=== PATIENT | female | born 1975 | race Caucasian/White ===

== ENCOUNTER → 2019-03-11 07:56 | Outpatient (CLI) | payer BC, SELFPAY ==
--- NOTE | ~2019-03-11 | MM_ITS ---
EXAMINATION: MM screening [facility] BI w jimmy HISTORY: Screening mammogram TECHNIQUE: Craniocaudal and mediolateral oblique 3-D tomosynthesis images were obtained and synthetic 2-D images were generated. CAD analysis was submitted and interpreted. COMPARISON: 12/14/2017, 12/02/2016, 11/25/2016 BREAST PARENCHYMAL COMPOSITION: There are scattered areas of fibroglandular density. FINDINGS: There is no evidence of suspicious mass, calcification, or architectural distortion to sugg est malignancy in either breast. There has been no suspicious interval change. IMPRESSION: 1. No mammographic evidence of malignancy. 2. Recommend routine screening mammography in one year. BI-RADS Category 1: Negative Reviewed, dictated and finalized at location A. NG TECHNICIAN
== END ==
PROVIDERS: PCP Family Medicine; Visit Provider Student in an Organized Health Care Education/Training Program
DX: Z12.31 Encounter for screening mammogram for malignant neoplasm of breast (principal)
CPT/HCPCS: 77063; 77067

== ENCOUNTER 2019-07-26 00:14 | Outpatient (CLI) | payer BC, SELFPAY ==
[2019-07-26 18:10] LABS: SARS-CoV-2 RNA PCR Negative
== END 2019-07-26 00:15 | disposition home or self-care (01) ==
LOC: ANHCOVIDDT 00:14
PROVIDERS: Anesthesiology; PCP Family Medicine; Visit Provider Student in an Organized Health Care Education/Training Program
DX: Z20.828 Contact with and (suspected) exposure to other viral communicable diseases (principal); Z01.812 Encounter for preprocedural laboratory examination
CPT/HCPCS: 87635; C9803; U0003

== ENCOUNTER 2019-07-28 00:25 | Day surgery (SDC) | payer BC, SELFPAY ==
[2019-04-25 10:57] VITALS: BMI 34.9
[2019-07-18 14:59] VITALS: BMI 35.7
--- NOTE | 2019-07-18 15:00 | PC.NURSE ---
HX VERIFIED WITH PT; PT STATES NO CHANGE IN HEALTH SINCE INTERVIEW ON 04/25/19. INSTRUCTIONS GIVEN FOR 07/28/19 SURGERY
--- NOTE | 2019-07-28 03:50 | PM.IMHP ---
H&P: HPI History of Present Illness Chief complaint: abn uterine bleeding Narrative: Savanah Vasquez is a 44 year old female who presented to the [facility] for evaluation of abnormal uterine bleeding. At time of presentation, patient stated that her last normal menstrual period was in November of 2018. She skipped cycle in December and January of 2019 and reported onset of spotting in mid February 2019 followed by significantly heavy flow that has been mostly persistent since then. Reported passage of several large blood clots during this time as well. Patient has a history of endometrial polyps in the past and is concerned about recurrence of polyps. She had an unremarkable pelvic US done in 08/2018. She has undergone a hysteroscopy, D&C, and polypectomy in the past in 2007. She is uncertain, but may have had similar procedure performed a 2nd time in 2011 or 2012. She believes an endometrial ablation was also performed during second procedure. Records unavailable. Patient is not currently on hormonal regulation. During evaluation, an EMB was attempted in office x 2, however, unsuccessful due to cervical stenosis. Decision made to proceed with a hysteroscopy/D&C in the OR. Patient reports feeling well today without complaints. Review of Systems Review of Systems: All systems reviewed & are unremarkable except as noted in HPI and below Constitutional: Constitutional: Reports as per HPI, Reports no additional constitutional complaints, Denies chills, Denies fever(s), Denies headache(s) and Denies night sweats Eyes: Eyes: Reports as per HPI and Reports no additional eye complaints ENT: Reports system reviewed and no additional complaints, except as documented, Reports as per HPI, Reports Normal hearing present and Denies headache(s) Cardiovascular: Cardiovascular: Reports as per HPI, Reports no additional cardiovascular complaints, Denies chest pain and Denies dyspnea Respiratory: Respiratory: Reports as per HPI, Reports no additional respiratory complaints, Denies cough and Denies dyspnea Gastrointestinal: Gastrointestinal: Reports as per HPI, Reports no additional gastrointestinal complaints, Denies abdominal pain, Denies change in bowel habits, Denies change in stool character, Denies nausea and Denies vomiting Genitourinary: Genitourinary: Reports no additional female genitourinary complaints, Reports as per HPI, Reports abnormal vaginal bleeding, Denies genital lesions, Denies hot flashes, Denies dyspareunia, Denies pelvic pain, Denies sexual dysfunction, Denies urinary incontinence, Denies vaginal discharge, Denies vaginal dryness and Denies vaginal odor Musculoskeletal: Musculoskeletal: Reports no additional musculoskeletal complaints and Reports as per HPI Integumentary/Breasts: Skin/Breast: Reports system reviewed and no additional complaints, except as docu, Reports as per HPI, Denies breast pain and Denies nipple discharge Neurologic: Reports system reviewed and no additional complaints, except as documented, Reports as per HPI, Reports Normal hearing present and Denies headache(s) Psychiatric: Psychiatric: Reports no additional psychiatric complaints, Reports as per HPI, Denies anxiety and Denies depression Endocrine: Endocrine: Reports no additional endocrine complaints and Reports as per HPI Hematologic/Lymphatic: Hematologic/Lymphatic: Reports no additional hematologic/lymphatic complaints and Reports as per HPI Allergic/Immunologic: Allergic/Immunologic: Reports no additional allergic/immunologic complaints and Reports as per HPI PMFSH Past Medical History Medical History Endometrial polyp Migraines Surgical History Surgical History History of dilation and curettage Previous section x 3 [place] teeth removed Family History Family History Grandparent Diabetes mellitus
[2019-07-28] MEDS: LACTATED RINGERS 1,000 ML 30 ML IV CONT (06:30)
[2019-07-28 06:50] VITALS: BP 88/63; PULSE 80; RESP 16; TEMP 36.4; O2SAT 100; BMI 34.7
--- NOTE | 2019-07-28 06:52 | WPDANESEPPF ---
Anes - Initial Pre Proc Eval Procedure: Operation Date: 07/28/19 07:30 Proposed Procedures p Hysteroscopy, Dilation and Curettage, Possible Myosure - Margaret Pink MD Date/Time: 07/28/19 06:52 Surgeon: Margaret Pink MD Pre Op Diagnosis: abn uterine bleeding Patient Data Age: 44 Gender: F Height: 5 ft 5 in Weight: 94.8 kg Last Vital Signs Temp 36.4 C L 07/28/19 06:50 Pulse 80 07/28/19 06:50 Resp 16 07/28/19 06:50 BP 88/63 L 07/28/19 06:50 Pulse Ox 100 07/28/19 06:50 Allergies Allergy/AdvReac Type Severity Reaction Status Date / Time No Known Allergies Allergy Unknown Verified 07/28/19 06:48 Home Medications Medication Instructions Recorded Confirmed Type cholecalciferol (vitamin D3) 1,250 1,250 mcg PO WEEKLY 04/06/19 07/18/19 History mcg (50,000 unit) capsule misoprostol 200 mcg PO 07/28/19 History Patient hx anesthesia problems: none Family hx anesthesia problems: none PMFSH Past Medical History Medical History Endometrial polyp Migraines Surgical History Surgical History History of dilation and curettage Previous section x 3 [place] teeth removed Family History Family History Grandparent Diabetes mellitus Hypertension Father Family history of congenital heart disease Mother Family history of lymphoma Social History Social History Smoking status: Never smoker Second hand tobacco smoke exposure: No Alcohol intake: never Anes - Eval Final PreProcedure Day of Procedure 07/28/19 06:52 Patient weight: obese Heart: regular rate and rhythm Lungs: clear to auscultation Airway: Mallampati scale class II Neurological: alert and oriented Last oral intake: >/= 8 hours ASA classification: II Emergent: no Anesthetic plan: proceed Anesthesia type and monitoring: general GIVS and standard monitoring Informed Consent: The patient's anesthetic plan and its attendant risks and benefits were discussed with the patient/family/POA. Questions were solicited and answers provided to the satisfaction of the patient/family/POA.
--- NOTE | 2019-07-28 06:54 | SUR.PREOP ---
DR CHONG NOTIFIED OF BP 88/63.
--- NOTE | 2019-07-28 07:24 | WPDHPUPDATE1 ---
History and Physical Update Update Date/Time: 07/28/19 07:24 History and Physical has been reviewed, including an updated exam of the patient. There are NO changes in the patient's condition. Risks, benefits, and alternatives have been discussed and questions answered. Patient agrees to proceed with procedure.
[2019-07-28] MEDS: KETOROLAC 30 MG/ML VIAL (*BKC) IV PUSH (07:30)
--- NOTE | 2019-07-28 07:56 | SUR.OPER ---
Ebl=10ml
--- NOTE | 2019-07-28 08:03 | PM.PROC ---
Procedure Note - Detailed Date of procedure: 07/28/19 Pre-op diagnosis: abn uterine bleeding Post-op diagnosis: same Procedure performed: Hysteroscopy, dilation and curettage Description of procedure: The patient was taken to the operating room where she self transferred to the operating room table. She was placed in the dorsal supine position. Anesthesia was administered and found to be adequate. The patient was repositioned in dorsal lithotomy position with the use of Deandre stirrups. She was prepped and draped in the usual sterile fashion. An examination under anesthesia was performed and revealed the uterus to be approximately 8 week size and anteverted. A red rubber catheter was used to drain the bladder of 75 cc of light yellow urine. A bivalve speculum was inserted into the vagina. The anterior lip the cervix was grasped with a single-tooth tenaculum. A paracervical block was performed with 1% Lidocaine. 5 cc of Lidocaine was administered on either side. The cervix was serially dilated to accommodate a hysteroscope. The hysteroscope was introduced into the endometrial cavity. A moderate amount of fluffy polypoid tissue was noted along with what appeared to be significant scar tissue and adhesions likely from prior procedure. Tubal ostia were not visualized. A few photographs were taken and the hysteroscope was removed. A medium sized rigid curette was used to perform a curettage of the endometrial cavity. All quadrants of the endometrium were explored. A small amount of tissue was obtained and prepared to be sent to pathology for analysis. A 2nd pass with the hysteroscope was then made and showed cavity with similar appearance to initial view. Hysteroscope was removed. The tenaculum was removed. No bleeding was noted from the tenaculum puncture sites. The vagina was cleansed and dried. The remainder of the patient was also cleansed and dried and the patient was taken out the dorsal lithotomy position. She was awakened from anesthesia without difficulty and transported to the recovery room in stable condition. All instrument counts were correct at the end of the procedure. The patient tolerated the procedure well. Anesthesia: MAC Surgeon: Margaret Pink MD Estimated blood loss (mL): 10 IV fluids (mL): 600 Urine output (mL): 75 Drains: No Packing: No Pathology: yes (endometrial curettings) Complications: No immediate complications Condition: stable Disposition: PACU Findings: Hysteroscopic fluids: 2000cc in/1900cc out Intraoperative findings: moderate amount of fluffy, polypoid tissue inside of endometrial cavity, significant adhesions and scar tissue, tubal ostia not seen
[2019-07-28 08:04] VITALS: BP 112/59; PULSE 69; RESP 16; O2SAT 96
[2019-07-28 08:30] VITALS: BP 114/63; PULSE 62; RESP 16
[2019-07-28 09:00] VITALS: BP 106/57; PULSE 60; RESP 16
[2019-07-28 09:30] VITALS: BP 113/63; PULSE 59; RESP 16
[2019-07-28 09:50] VITALS: BP 113/63; PULSE 59; RESP 16
== END 2019-07-28 10:00 | disposition home or self-care (01) ==
PROVIDERS: PCP Family Medicine; Visit Provider Student in an Organized Health Care Education/Training Program
PROC: 0U5B8ZZ Destruction of Endometrium, Via Natural or Artificial Opening Endoscopic (ICD-10-PCS; CPT 58563; principal; 2019-07-28 07:30)
DX: N93.9 Abnormal uterine and vaginal bleeding, unspecified (principal); N84.0 Polyp of corpus uteri; E66.9 Obesity, unspecified; Z68.34 Body mass index [BMI] 34.0-34.9, adult
CPT/HCPCS: 58558; 88305; A9270; J0131; J1885; J2250; J2405; J2704; J3010; J7030; J7120

== ENCOUNTER → 2020-05-14 10:38 | Outpatient (CLI) | payer BC, SELFPAY ==
--- NOTE | ~2020-05-14 | MM_ITS ---
EXAMINATION: MM screening [facility] BI w jimmy HISTORY: Screening mammogram TECHNIQUE: Craniocaudal and mediolateral oblique 3-D tomosynthesis images were obtained and synthetic 2-D images were generated. CAD analysis was submitted and interpreted. COMPARISON: 03/11/2019, 12/14/2017 bilateral digital screening mammogram examinations BREAST PARENCHYMAL COMPOSITION: There are scattered areas of fibroglandular density. FINDINGS: There is no evidence of suspicious mass, calcification, or architectural distortion to sugg est malignancy in either breast. There has been no suspicious interval change. IMPRESSION: 1. No mammographic evidence of malignancy. 2. Recommend routine screening mammography in one year. BI-RADS Category 1: Negative Reviewed, dictated and finalized at location A.
== END ==
PROVIDERS: Visit Provider Student in an Organized Health Care Education/Training Program
DX: Z12.31 Encounter for screening mammogram for malignant neoplasm of breast (principal)
CPT/HCPCS: 77063; 77067

== ENCOUNTER 2020-05-24 08:27 | Outpatient (CLI) | payer BC, SELFPAY | END 2020-05-24 08:28 | LOC: ANHCOVIDVC 08:27 | DX: Z23 Encounter for immunization (principal) | CPT/HCPCS: 0001A; 91300 ==

== ENCOUNTER 2020-06-14 08:29 | Outpatient (CLI) | payer BC, SELFPAY | END 2020-06-14 08:30 | disposition home or self-care (01) | LOC: ANHCOVIDVC 08:29 | DX: Z23 Encounter for immunization (principal) | CPT/HCPCS: 0002A; 91300 ==

== ENCOUNTER 2021-06-22 11:55 | Emergency (ER) | payer OTHER, SELFPAY ==
[2021-06-22 12:09] VITALS: BP 126/59; PULSE 80; RESP 18; TEMP 36.6; O2SAT 100
--- NOTE | 2021-06-22 12:16 | ED.ANXIETY ---
HPI - Anxiety General Chief Complaint: Anxiety Stated Complaint: anxiety attack Time Seen by Provider: 06/22/21 12:20 Mode of arrival: ambulatory Limitations: no limitations History of Present Illness HPI narrative: 46-year-old female with history of anxiety presents with concern for acute anxiety. Reports she has been taking Prozac for anxiety for about 2 years. Reports it had not been making much of a difference, her doctor recently increased her dose which she felt made her symptoms worse. Reports she decreased her dose yesterday following orders from her doctor. Reports yesterday morning she woke up with acute anxiety that she could not control. Reports symptoms eased throughout the day as she went outside and was active. Reports she woke up this morning with worsening anxiety, reports feeling of her heart beating fast, chest heaviness, feeling of not being able to sit still, being very tearful and scared. She denies any recent life changes. She denies suicidal or homicidal ideations. MD complaint: anxiety Related Data Allergies Allergy/AdvReac Type Severity Reaction Status Date / Time No Known Allergies Allergy Unknown Verified 06/22/21 12:16 Review of Systems Review of Systems: CONSTITUTIONAL: Denies malaise, chills, or fever. CARDIOVASCULAR: Denies chest pain, palpitations, or edema. Reports chest heaviness and intermittent feeling of fast heartbeat RESPIRATORY: Denies cough or dyspnea. GASTROINTESTINAL: Denies abdominal pain, nausea, vomiting, bloody, or mucous stools. Reports diarrhea NEUROLOGIC: Denies numbness, weakness, or headache. PSYCHIATRIC: Reports anxiety All systems reviewed & are unremarkable except as noted in HPI and below PMFSH Past Medical History Medical History (Updated 06/22/21 @ 12:33 by Monisha Stevenson NP) Endometrial polyp Migraines Surgical History Surgical History History of dilation and curettage History of hysteroscopy Previous section x 3 Status post cervical polyp removal [place] teeth removed Family History Family History Grandparent Diabetes mellitus Hypertension Father Family history of congenital heart disease Mother Family history of lymphoma Social History Social History (Updated 04/08/21 @ 09:07 by Lisa Patel) Social History: Smoking status: Never smoker Second hand tobacco smoke exposure: No Alcohol intake: never Substance use: never Substance use type: does not use Gender identity (if verbalized by the patient): Female Sexual Orientation (if Verbalized by the Patient): Straight or Heterosexual Comments At time of signature, agree with nursing past medical, surgical, social and family history. There is no relevant family history pertinent to the presenting complaint Exam Narrative: GENERAL: Well-appearing, well-nourished, and in no acute distress. HEAD: Normocephalic, atraumatic. EYES: PERRLA, sclera clear, and EOMI. ENT: Mucous membranes moist. NECK: Supple. CHEST: No respiratory distress. Clear to auscultation. No bony deformities, no asymmetry. Speaks in full sentences. HEART: Regular rate and rhythm. No murmur heard. Normal peripheral pulses. SKIN: Warm, dry, no visible rash. NEURO: Alert and oriented x3. PSYCH: Tearful, anxious Course Course Emergency Course: Patient reports she has a good support system, her is present and very supportive. Patient is aware of, understands and agrees to treatment plan. Anticipatory guidance given. Patient agrees to follow-up as directed and is aware of reasons to seek care at the emergency department. Portions of this record may have been created with voice recognition software Level of Care: Express Care Visit Vital Signs Vital signs: Vital Signs Temperature 98 F 06/22/21 12:09 Pulse Rate 80 06/22/21 12:09 Respiratory Rate 18 06/22/21 12:
[2021-06-22 12:17] VITALS: BP 126/59; PULSE 80; RESP 18; TEMP 36.6; O2SAT 100
== END 2021-06-22 12:41 | disposition home or self-care (01) ==
PROVIDERS: Emergency Provider Nurse Practitioner; PCP Family Medicine
DX: F41.9 Anxiety disorder, unspecified (principal)
CPT/HCPCS: 99213; G0463

== ENCOUNTER 2021-08-21 07:21 | Outpatient (CLI) | payer OTHER, SELFPAY ==
--- NOTE | ~2021-08-21 | MM_ITS ---
EXAMINATION: MM screening [facility] BI w jimmy HISTORY: Screening mammogram TECHNIQUE: Craniocaudal and mediolateral oblique 3-D tomosynthesis images were obtained and synthetic 2-D images were generated. CAD analysis was submitted and interpreted. COMPARISON: 05/14/2020, 03/11/2019, 12/14/2017 BREAST PARENCHYMAL COMPOSITION: There are scattered areas of fibroglandular density. FINDINGS: There is no suspicious mass, calcification, or architectural distortion to suggest malignan cy in either breast. There has been no suspicious interval change. IMPRESSION: 1. No mammographic evidence of malignancy. 2. Recommend routine screening mammography in one year. BI-RADS Category 1: Negative Reviewed, dictated and finalized at location A.
== END 2021-08-21 07:22 | disposition home or self-care (01) ==
PROVIDERS: PCP Family Medicine; Visit Provider Student in an Organized Health Care Education/Training Program
DX: Z12.31 Encounter for screening mammogram for malignant neoplasm of breast (principal)
CPT/HCPCS: 77063; 77067

== ENCOUNTER 2022-04-27 16:06 | Emergency (ER) | payer SELFPAY ==
[2022-04-27 16:16] VITALS: BP 119/67; PULSE 91; RESP 20; TEMP 37.2; O2SAT 99
[2022-04-27 16:18] VITALS: BP 119/67; PULSE 91; RESP 20; TEMP 37.2; O2SAT 99
--- NOTE | 2022-04-27 16:42 | ED.URI ---
HPI - URI/Sore Throat General Chief Complaint: Upper Respiratory Infection Stated Complaint: Cough,Headache,Body Aches Time Seen by Provider: 04/27/22 16:08 Source: patient Mode of arrival: ambulatory Limitations: no limitations History of Present Illness HPI Narrative: 46-year old female presents to [facility] with complaints of sore throat, cough, headache, left ear pressure for the past 2 days. Patient reports that she had an upset stomach and nausea 3 days prior but that since resolved. Patient reports that her son was recently ill with fever as well. Patient has been taking [id number] Tylenol, ibuprofen, DayQuil, NyQuil and using Vicks vapor rub with minimal relief. Patient denies vomiting, diarrhea, shortness of breath or wheezing. Patient is a nonsmoker. Patient denies recent travel MD elicited complaint: cough, sore throat, rhinorrhea and nasal congestion Onset (ago): day(s) (2) Able to tolerate fluids by mouth: Yes Context: sick contacts Treatments prior to arrival: acetaminophen, ibuprofen and cold medicine Related Data Allergies Allergy/AdvReac Type Severity Reaction Status Date / Time buspirone [From BuSpar] AdvReac Intermediate Anxiety Verified 11/18/21 10:11 lexapro AdvReac Intermediate Anxiety Uncoded 11/18/21 10:11 Review of Systems Constitutional: Constitutional: Reports chills, Reports fatigue, Reports fever(s) and Denies weakness ENT: Denies vertigo, Denies dizziness, Denies epistaxis, Reports nasal congestion and Reports sore throat Respiratory: Respiratory: Reports cough, Denies dyspnea and Denies wheezing Gastrointestinal: Gastrointestinal: Denies diarrhea, Denies nausea and Denies vomiting Integumentary/Breasts: Skin/Breast: Denies rash Neurologic: Denies syncope and Denies headache(s) Endocrine: Endocrine: Denies fatigue Allergic/Immunologic: Allergic/Immunologic: Denies throat swelling, Denies tongue swelling and Denies wheezing PMFSH Past Medical History Medical History (Updated 04/27/22 @ 16:49 by Mari Tobar APRN) Endometrial polyp Migraines Surgical History Surgical History History of dilation and curettage History of hysteroscopy Previous section x 3 Status post cervical polyp removal [place] teeth removed Family History Family History Grandparent Diabetes mellitus Hypertension Father Family history of congenital heart disease Mother Family history of lymphoma Social History Social History Social History: Smoking status: Never smoker Second hand tobacco smoke exposure: No Alcohol intake: never Substance use: never Substance use type: does not use Living arrangements: with family Occupation/Education: unemployed 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 Gender identity (if verbalized by the patient): Female Sexual Orientation (if Verbalized by the Patient): Straight or Heterosexual Comments At time of signature, I agree with nursing past medical, surgical, social and family history. There is no relevant family history pertinent to the presenting complaint. Exam Const: General: healthy appearing and no acute distress Nutritional Appearance: well nourished Orientation/consciousness: patient oriented x3 Limitations: no limitations HENMT: Head: normal to inspection Ears: external ears normal, EAC's normal and TM abnormal wth effusion serous bilateral Mouth: Yes lip normal and Yes moist mucous membranes Throat: posterior oropharynx normal and uvula midline Other: Moderate bilateral nasal congestion noted with scant amount of clear nasal drainage noted Neck: Neck: normal visual inspection Resp: Effort & Inspection: normal respiratory effort and not labored Auscultation: clear to auscultation bilaterally, no crackles, no
== END 2022-04-27 17:06 | disposition home or self-care (01) ==
PROVIDERS: Emergency Provider Nurse Practitioner Family; PCP Family Medicine
DX: U07.1 COVID-19 (principal)
CPT/HCPCS: 87081; 87426; 87804; 87880; 99213; C9803; G0463

== ENCOUNTER 2022-05-04 17:40 | Observation (INO) | payer SELFPAY ==
--- NOTE | ~2022-05-04 | XR_ITS ---
EXAMINATION: XR chest 2V DATE: 05/04/2022 18:40 INDICATION: Shortness of breath and cough TECHNIQUE: Frontal and lateral views of the chest are obtained COMPARISON: None available FINDINGS: There are minimal airspace opacities of the lung bases. No pleural effusion or pneumothorax . The cardiomediastinal silhouette is normal. There is moderate thoracic spondylosis. There is mild o steoarthritis of the shoulders. IMPRESSION: 1. No acute cardiopulmonary abnormality. Reviewed, dictated and finalized at location F.
[2022-05-04 17:43] VITALS: BP 141/101; PULSE 95; RESP 18; TEMP 36.6; O2SAT 100
--- NOTE | 2022-05-04 17:54 | ECG_ITS ---
Measurements Intervals [place] Rate: 85 P: 41 PA: 142 QRS: 15 QRSD: 89 T: 48 QT: 383 QTc: 456 Interpretive Statements SINUS RHYTHM DELAYED PRECORDIAL R/S TRANSITION BASELINE ARTIFACT- I, II, III, AVL, V1, V3-V6 BORDERLINE ECG NO PREVIOUS ECG AVAILABLE FOR COMPARISON Electronically Signed On 05-04-2022 21:43:49 CDT by Dewey Urbina D.O.
[2022-05-04 18:43] LABS: Basophils Percent Auto 0.4 % (0.2-1.2); Eosinophils Absolute Auto 0.1 K/mm3 (0-0.3); Eosinophils Percent Auto 0.6 % (0-4.4); Hematocrit 40.3 % (37.0-47.0); Hemoglobin 13.7 g/dL (12.0-15.0); Immature Granulocyte Absolute 0.07 K/mm3 (0.00-0.031); Immature Granulocyte Percent A 0.7 % (0-0.5); Lymphocytes Absolute Auto 3.68 K/mm3 (0.9-3.2); Lymphocytes Percent Auto 37.1 % (18.3-44.2); Mean Corpuscular Hemoglobin 29.1 pg (26-34); Mean Corpuscular Volume 85.7 fl (80-100); Mean Platelet Volume 10.8 fl (7.4-10.4); Monocytes Absolute Auto 0.7 K/mm3 (0.1-0.6); Monocytes Percent Auto 6.9 % (2.6-8.5); Neutrophils Absolute Auto 5.4 K/mm3 (1.3-6.7); Neutrophils Percent Auto 54.3 % (45.5-73.1); Platelet Count Result 257 k/mm3 (150-375); White Blood Count 9.9 K/mm3 (4.5-10.0)
[2022-05-04 18:48] LABS: Alanine Aminotransferase 24 U/L (6-35); Albumin Level 4.2 g/dL (3.5-5.1); Alkaline Phosphatase 75 U/L (38-126); Anion Gap 11 mmol/L (8-16); Aspartate Amino Transferase 22 U/L (14-36); Bilirubin,Total 0.5 mg/dL (0.2-1.3); Blood Urea Nitrogen 11 mg/dL (7-17); Calcium 9.2 mg/dL (8.4-10.2); Carbon Dioxide 22 mmol/L (22-30); Chloride 106 mmol/L (98-107); Estimated Glomerular Filt Rate > 60; Glucose 87 mg/dL (65-110); Potassium 3.4 mmol/L (3.4-5.0); Sodium 139 mmol/L (137-145)
[2022-05-04 20:28] VITALS: PULSE 70; RESP 22
[2022-05-04] MEDS: IPRATROPIUM BR 0.02% INH SOLN 0.5 MG/2.5 ML VIAL INHALATION (20:28)
[2022-05-04] MEDS: ALBUTEROL SULFATE NEB 2.5 MG/3 ML INH INHALATION (20:28)
[2022-05-04 20:33] VITALS: PULSE 69; RESP 2
[2022-05-04 20:50] LABS: NT Pro B Type Natriuretic Pept 75 pg/mL (19.9-100); Troponin I < 0.012 ng/mL (0.000-0.034)
[2022-05-04] MEDS: KETOROLAC 30 MG/ML VIAL (*BKC) IV PUSH (20:56)
[2022-05-04] MEDS: PROMETHAZINE/CODEINE (*CRX) 5 ML SYRUP PO (20:58)
[2022-05-04 21:26] LABS: D Dimer 0.37 ug/mL (<0.48)
[2022-05-04] MEDS: MORPHINE SULFATE (*CRX) 4 MG/ML INJ IV PUSH (23:06)
--- NOTE | 2022-05-04 23:59 | ED.GENADULT ---
HPI - General Adult General Chief complaint: Shortness of Breath/Dyspnea Stated complaint: sob, covid pos Time Seen by Provider: 05/04/22 20:01 History of Present Illness HPI narrative: Patient 46-year-old female who presents the emergency department with chief complaint of generalized malaise and coughing. Patient reports that she was diagnosed with COVID-19 approximately 1 week ago reports that she has been uncontrollably coughing at home reports that she has pain in her chest and also has a headache. The patient reports that she has been on a course of a steroid and reports that she has completed that but continues to have coughing and also was treated with Tessalon Perles without relief. Related Data Allergies Allergy/AdvReac Type Severity Reaction Status Date / Time buspirone [From BuSpar] AdvReac Intermediate Anxiety Verified 11/18/21 10:11 lexapro AdvReac Intermediate Anxiety Uncoded 11/18/21 10:11 Review of Systems Review of Systems: A 10 system review of systems was completed on the patient and is negative except for what is stated in the HPI. Nursing and ancillary documentation was reviewed. [facility] Past Medical History Medical History (Updated 05/05/22 @ 20:16 by Vince Alex MD) Endometrial polyp Migraines Surgical History Surgical History History of dilation and curettage History of hysteroscopy Previous section x 3 Status post cervical polyp removal [place] teeth removed Family History Family History Grandparent Diabetes mellitus Hypertension Father Family history of congenital heart disease Mother Family history of lymphoma Social History Social History Social History: Smoking status: Never smoker Second hand tobacco smoke exposure: No Alcohol intake: never Substance use: never Substance use type: does not use Lack of Transportation: No Lack of Food: Never True Current Housing: I Have Housing Concerned About Future Housing: No Difficulty Paying Gas/Electric Bills: No Difficulty Paying for Meds: No Currently Unemployed: No Education: Associate Degree Difficulty w/ Childcare or Family Care: No Living arrangements: with family Occupation/Education: unemployed 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 Gender identity (if verbalized by the patient): Female Sexual Orientation (if Verbalized by the Patient): Straight or Heterosexual Spiritual care concerns: No Exam Narrative: GENERAL: Well-appearing, well-nourished, and in no acute distress. HEAD: Normocephalic, atraumatic. EYES: PERRLA and EOMI. ENT: Nares clear, no rhinorrhea or epistaxis. Mucous membranes moist. NECK: Supple. CHEST: Clear to auscultation. No respiratory distress. HEART: Regular rate and rhythm. No murmur heard. Normal peripheral pulses. ABDOMEN: Soft, nontender, nondistended, normal active bowel sounds. EXTREMITIES: Normal range of motion. No edema. SKIN: Warm, dry, no rash. NEURO: No focal deficits. Alert and oriented x3. PSYCH: Normal mood and affect. Course Vital Signs Vital signs: Vital Signs Temperature 36.6 C 05/04/22 17:43 Pulse Rate 95 05/04/22 17:43 Respiratory Rate 18 05/04/22 17:43 Blood Pressure 141/101 H 05/04/22 17:43 Pulse Oximetry 100 05/04/22 17:43 Oxygen Delivery Room Air 05/04/22 17:43 Temperature 35.9 C L 05/05/22 03:24 Pulse Rate 61 05/05/22 13:15 Respiratory Rate 20 05/05/22 13:15 Blood Pressure 112/61 05/05/22 03:24 Pulse Oximetry 98 05/05/22 07:35 Oxygen Delivery Room Air 05/05/22 08:55 Medical Decision Making MDM Narrative Medical decision making narrative: Differential diagnosis includes COVID-19 pneumonia, PE, ACS, CHF, Laboratory studies were obtained which showed
[2022-05-05] VITALS (16 sets, daily range): BP systolic 112–125; BP diastolic 61–74; PULSE 55–74; RESP 13–20; TEMP 35.9; O2SAT 96–100; BMI 36.6
--- NOTE | 2022-05-05 01:20 | ECG_ITS ---
Measurements Intervals [place] Rate: 49 P: 39 VT: 152 QRS: 23 QRSD: 95 T: 34 QT: 484 QTc: 439 Interpretive Statements SINUS BRADYCARDIA BASELINE WANDER- I, II ABNORMAL ECG COMPARED TO ECG 05/04/2022 18:01:30 SINUS BRADYCARDIA NOW PRESENT Electronically Signed On 05-05-2022 10:24:50 CDT by Dewey Urbina D.O.
--- NOTE | 2022-05-05 01:31 | PC.NURSE ---
sat patient up and removed iv; patient became dizzy and hr dropped into 30's, doctor notified; ekg completed; patient resting now
--- NOTE | 2022-05-05 03:25 | ADMGEN ---
This patient, Savanah Vasquez, was admitted to 2 Medical Room 260-. Patient/family oriented to hospital policies and general routines including ID bracelet, bed and alarms, visiting hours, pain management, procedures, bathroom and other care routines, personal items, smoking policy, room service/diet, and visiting hours. Information on how to activate the Rapid Response Team has been discussed. Patient/Family are encouraged to report perceived risks to care and to ask questions if they do not understand what they are told or what they should do.
[2022-05-05 03:26] LABS: Influenza A QL RT-PCR Negative (Negative); Influenza B QL RT-PCR Negative (Negative); RSV RNA, RT-PCR Negative (Negative); SARS-CoV-2 RNA PCR Positive
[2022-05-05] MEDS: ACETAMINOPHEN 325 MG TABLET 650 MG PO ×2 (03:56→08:55)
[2022-05-05] MEDS: SODIUM CHLORIDE 0.9% IV 1,000 ML 125 ML IV CONT (03:58)
[2022-05-05] MEDS: LEVALBUTEROL NEB 1.25 MG/3 ML 0.63 MG INHALATION ×2 (07:35→13:05)
[2022-05-05] MEDS: IPRATROPIUM BR 0.02% INH SOLN 0.5 MG/2.5 ML VIAL INHALATION ×2 (07:35→13:05)
[2022-05-05] MEDS: FLUoxetine HCL 10 MG CAPSULE PO (08:55)
[2022-05-05] MEDS: BENZONATATE 100 MG CAPSULE PO (10:30)
--- NOTE | 2022-05-05 11:51 | PM.IMHP ---
H&P: HPI History of Present Illness Date/Time: 05/05/22 11:51 Chief Complaint: Patient 46-year-old female who presents the emergency department with chief complaint of generalized malaise and coughing.? Patient reports that she was diagnosed with COVID-19 approximately 1 week ago reports that she has been uncontrollably coughing at home reports that she has pain in her chest and also has a headache.? The patient reports that she has been on a course of a steroid and reports that she has completed that but continues to have coughing and also was treated with Tessalon Perles without relief. Review of Systems Review of Systems: Ten point review of systems negative except as stated in HPI PMFSH Past Medical History Medical History Endometrial polyp Migraines Surgical History Surgical History History of dilation and curettage History of hysteroscopy Previous section x 3 Status post cervical polyp removal [place] teeth removed Family History Family History Grandparent Diabetes mellitus Hypertension Father Family history of congenital heart disease Mother Family history of lymphoma Social History Social History Social History: Smoking status: Never smoker Second hand tobacco smoke exposure: No Alcohol intake: never Substance use: never Substance use type: does not use Lack of Transportation: No Lack of Food: Never True Current Housing: I Have Housing Concerned About Future Housing: No Difficulty Paying Gas/Electric Bills: No Difficulty Paying for Meds: No Currently Unemployed: No Education: Associate Degree Difficulty w/ Childcare or Family Care: No Living arrangements: with family Occupation/Education: unemployed 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 Gender identity (if verbalized by the patient): Female Sexual Orientation (if Verbalized by the Patient): Straight or Heterosexual Spiritual care concerns: No Meds Home Medications and Allergies Home Medications Medication Instructions Recorded Confirmed Type cholecalciferol (vitamin D3) 1,250 1,250 mcg PO WEEKLY #14 caps 07/01/21 05/05/22 Rx mcg (50,000 unit) capsule fluoxetine 10 mg tablet 10 mg PO DAILY #90 tabs 01/29/22 05/05/22 Rx benzonatate 100 mg capsule 100 mg PO TID PRN cough #20 caps 04/27/22 05/05/22 Rx Allergies Allergy/AdvReac Type Severity Reaction Status Date / Time [facility] AdvReac Intermediate Anxiety Verified 11/18/21 10:11 lexapro AdvReac Intermediate Anxiety Uncoded 11/18/21 10:11 Vital Signs Vital Signs - 24 hr 05/04/22 17:43 05/04/22 20:28 05/04/22 20:33 Temperature 97.9 F Pulse Rate 95 70 69 Respiratory Rate 18 22 H 2 L Blood Pressure 141/101 H Pulse Oximetry 100 Oxygen Delivery Room Air 05/05/22 01:32 05/05/22 01:30 05/05/22 01:32 Temperature Pulse Rate 60 60 60 Respiratory Rate 16 13 15 Blood Pressure 113/70 113/70 Pulse Oximetry 97 96 Oxygen Delivery 05/05/22 01:45 05/05/22 01:46 05/05/22 02:28 Temperature Pulse Rate 66 62 Respiratory Rate 17 14 15 Blood Pressure 122/70 Pulse Oximetry 100 96 Oxygen Delivery 05/05/22 02:30 05/05/22 02:37 05/05/22 02:46 Temperature Pulse Rate 59 L 62 63 Respiratory Rate 16 14 14 Blood Pressure 121/74 125/69 Pulse Oximetry 100 98 Oxygen Delivery 05/05/22 03:31 05/05/22 03:24 05/05/22 04:00 Temperature 96.7 F L Pulse Rate 58 L 57 L Respiratory Rate 20 Blood Pressure 112/61 Pulse Oximetry 100 Oxygen Delivery Room Air 05/05/22 07:35 05/05/22 07:35 05/05/22 07:45 Temperature Pulse Rate 55 L 55 L 60 Respiratory Rate 18 18 18 Blood Pressure Pulse Oximetry 98 Oxygen D
--- NOTE | 2022-05-05 11:54 | PM.DS ---
DS: Admitting Diagnosis Discharge Date May 05, 2022 Admitting Diagnosis Cough secondary to COVID DS: Discharge Diagnosis Discharge Diagnosis (1) COVID-19: Code(s): U07.1 - COVID-19 Status: Acute Assessment and Plan: Continue supportive care (2) Acute upper respiratory infection: Code(s): J06.9 - Acute upper respiratory infection, unspecified Status: Acute DS: Summary Hospital Course Hospital Course: Patient was admitted for cough secondary to COVID. Workup was unrevealing. Patient be sent on cough medication. Patient never required oxygen. She was walking her room ambulating without any symptoms. Time Spent with Patient Time attestation: Total time spent providing and/or coordinating discharge services: Exam Narrative: GENERAL: Well-appearing, well-nourished, and in no acute distress. HEAD: Normocephalic, atraumatic. EYES: PERRLA and EOMI. ENT: Nares clear, no rhinorrhea or epistaxis. Mucous membranes moist. NECK: Supple. CHEST: Clear to auscultation. No respiratory distress. HEART: Regular rate and rhythm. No murmur heard. Normal peripheral pulses. ABDOMEN: Soft, nontender, nondistended, normal active bowel sounds. EXTREMITIES: Normal range of motion. No edema. SKIN: Warm, dry, no rash. NEURO: No focal deficits. Alert and oriented x3. PSYCH: Normal mood and affect. DS: Data Data Completed and Pending Labs on day of discharge: Labs from last 24 hours 05/05/22 05/04/22 05/04/22 02:35 21:03 18:31 WBC RBC Hgb Hct MCV MCH MCHC RDW Plt Count MPV Immature Gran % (Auto) Neut % (Auto) Lymph % (Auto) [place] % (Auto) Eos % (Auto) Baso % (Auto) Lymph # (Auto) [place] # (Auto) Eos # (Auto) Baso # (Auto) Abs Immat Gran (auto) Absolute Neuts (auto) Absolute Nucleated RBC Nucleated RBC % D-Dimer 0.37 Sodium 139 Potassium 3.4 Chloride 106 Carbon Dioxide 22 Anion Gap 11 BUN 11 Creatinine 0.70 Estim Creat Clear Calc Not Reportable Estimated GFR > 60 Glucose 87 Calcium 9.2 Total Bilirubin 0.5 AST 22 ALT 24 Alkaline Phosphatase 75 Troponin I NT-Pro-B Natriuret Pep Total Protein 7.0 Albumin 4.2 Influenza A (RT-PCR) Negative Influenza B (RT-PCR) Negative RSV (RT-PCR) Negative SARS-CoV-2 RNA (RT-PCR) Positive A 05/04/22 05/04/22 18:31 18:16 WBC 9.9 RBC 4.70 Hgb 13.7 Hct 40.3 MCV 85.7 MCH 29.1 MCHC 34.0 RDW 13.0 Plt Count 257 MPV 10.8 H Immature Gran % (Auto) 0.7 H Neut % (Auto) 54.3 Lymph % (Auto) 37.1 [place] % (Auto) 6.9 Eos % (Auto) 0.6 Baso % (Auto) 0.4 Lymph # (Auto) 3.68 H [place] # (Auto) 0.7 H Eos # (Auto) 0.1 Baso # (Auto) 0.0 Abs Immat Gran (auto) 0.07 H Absolute Neuts (auto) 5.4 Absolute Nucleated RBC 0.0 Nucleated RBC % 0.0 D-Dimer Sodium Potassium Chloride Carbon Dioxide Anion Gap BUN Creatinine Estim Creat Clear Calc Estimated GFR Glucose Calcium Total Bilirubin AST ALT Alkaline Phosphatase Troponin I < 0.012 NT-Pro-B Natriuret Pep 75 Total Protein Albumin Influenza A (RT-PCR) Influenza B (RT-PCR) RSV (RT-PCR) SARS-CoV-2 RNA (RT-PCR) Discharge Plan Discharge Attending physician on discharge: Michael Rogel Discharging Clinician: Michael Rogel Patient Disposition: Home, Self-Care Activity: no preference Diet: as tolerated Patient Instructions: Antibiotic Form Stand Alone Forms: General Discharge Information Follow-up/Referrals: Genny Navas MD [Primary Care Provider] - Discharge Medications: New promethazine-codeine 6.25-10 mg/5 mL syrup 5 ml PO Q6H PRN (Reason: cough) Qty: 118 0RF Continued benzonatate 100 mg capsule 100 mg PO TID PRN (Reason: cough) Qty: 20 0RF cholecalciferol (vitamin D3) 1,250 mcg (50,000 unit) ca
== END 2022-05-05 13:35 | disposition home or self-care (01) ==
LOC: ANHED 05-05 02:41 → ANH2MED 05-05 04:00
PROVIDERS: Emergency Medicine; Admitting Provider Chiropractor; Emergency Provider Emergency Medicine; PCP Family Medicine; Visit Provider Chiropractor
DX: U07.1 COVID-19 (principal); J06.9 Acute upper respiratory infection, unspecified
CPT/HCPCS: 36415; 71046; 80053; 83880; 84484; 85025; 85380; 87637; 93005; 94640; 96360; 96361; 96365; 96366; 96375; 99285; A9270; G0378; J0131; J1885; J2270; J7030

== ENCOUNTER 2022-06-21 08:35 | Emergency (ER) | payer OTHER, SELFPAY ==
[2022-06-21 08:50] VITALS: BP 109/76; PULSE 94; RESP 16; TEMP 36.6; O2SAT 100
--- NOTE | 2022-06-21 09:36 | ECG_ITS ---
Measurements Intervals [place] Rate: 71 P: 48 IN: 152 QRS: 38 QRSD: 98 T: 42 QT: 385 QTc: 420 Interpretive Statements SINUS RHYTHM WITH SINUS ARRHYTHMIA DELAYED PRECORDIAL R/S TRANSITION BORDERLINE ECG COMPARED TO ECG 05/05/2022 01:20:25 SINUS RHYTHM NOW PRESENT SINUS ARRHYTHMIA NOW PRESENT Electronically Signed On 06-21-2022 13:29:51 CDT by Dewey Urbina D.O.
--- NOTE | 2022-06-21 09:37 | ED.GENADULT ---
HPI - General Adult General Chief complaint: Anxiety Stated complaint: PANIC ATTACK,ANXIETY Time Seen by Provider: 06/21/22 09:11 History of Present Illness HPI narrative: 47-year-old female presented to the emergency department for evaluation of worsening anxiety. Patient states she does have a longstanding history of anxiety and does report increased stressors. Patient has been having follow-up with her primary care physician and has had multiple medication adjustments. Patient was just started on venlafaxine and states she did not tolerate this. Patient was then switched to alprazolam. Patient presents to the ED complaining of decreased p.o. intake, poor sleep and increased stress and anxiety. Patient is here with family. Related Data Allergies Allergy/AdvReac Type Severity Reaction Status Date / Time buspirone [From [facility]] AdvReac Intermediate Anxiety Verified 06/21/22 09:15 lexapro AdvReac Intermediate Anxiety Uncoded 06/21/22 09:15 Review of Systems Review of Systems: All systems reviewed & are unremarkable except as noted in HPI and below PMFSH Past Medical History Medical History (Updated 06/21/22 @ 11:34 by Tank Arnett MD) Endometrial polyp Migraines Surgical History Surgical History History of dilation and curettage History of hysteroscopy Previous section x 3 Status post cervical polyp removal [place] teeth removed Family History Family History Grandparent Diabetes mellitus Hypertension Father Family history of congenital heart disease Mother Family history of lymphoma Social History Social History Social History: Smoking status: Never smoker Second hand tobacco smoke exposure: No Alcohol intake: never Substance use: never Substance use type: does not use Lack of Transportation: No Lack of Food: Never True Current Housing: I Have Housing Concerned About Future Housing: No Difficulty Paying Gas/Electric Bills: No Difficulty Paying for Meds: No Currently Unemployed: No Education: Associate Degree Difficulty w/ Childcare or Family Care: No Living arrangements: with family Occupation/Education: unemployed 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 Gender identity (if verbalized by the patient): Female Sexual Orientation (if Verbalized by the Patient): Straight or Heterosexual Spiritual care concerns: No Exam Narrative: APPEARANCE: Tearful and anxious appearing HEAD: normocephalic, atraumatic. EYES: PERRLA/EOMI, conjunctivae clear. NOSE: Normal no drainage NECK: Supple. No adenopathy, no masses. RESPIRATORY: Airway patent, respirations nonlabored. Clear to auscultation bilaterally, no rales, rhonchi, wheezing. CARDIOVASCULAR: Regular rate and rhythm without murmurs rubs or gallops. ABDOMINAL: Soft, nontender, nondistended, normal bowel sounds MUSCULOSKELETAL: Moves all extremities. Strength/ROM intact, No edema, No calf tenderness. NEURO: Alert. Cranial nerves II through XII intact. Grossly intact SKIN: Warm, dry. Normal Color PSYCHIATRIC: Anxious affect Course Course Emergency Course: 47-year-old female presented the ED for worsening anxiety. Baseline labs are being checked to evaluate for electrolyte abnormalities. TSH was ordered as well. Patient will be treated with IV Ativan to acutely help with her anxiety. Patient and family were updated on the plan for treatment Patient did feel significantly improved after the Ativan. Patient is resting comfortably. Patient and family were updated results of the work-up and strongly encouraged of close follow-up with their primary care physician. Patient states that she wants to follow-up with a different primary care physician so she was given information to follow-up with Dr. Silverman
[2022-06-21 10:00] LABS: Basophils Absolute Auto 0.1 K/mm3 (0.0-0.1); Basophils Percent Auto 0.7 % (0.2-1.2); Eosinophils Percent Auto 0.4 % (0-4.4); Hemoglobin 14.1 g/dL (12.0-15.0); Immature Granulocyte Absolute 0.02 K/mm3 (0.00-0.031); Immature Granulocyte Percent A 0.3 % (0-0.5); Lymphocytes Absolute Auto 2.37 K/mm3 (0.9-3.2); Lymphocytes Percent Auto 33.2 % (18.3-44.2); Mean Corpuscular HGB Conc 33.6 g/dl (32-36); Mean Corpuscular Hemoglobin 29.7 pg (26-34); Mean Corpuscular Volume 88.6 fl (80-100); Mean Platelet Volume 10.1 fl (7.4-10.4); Monocytes Absolute Auto 0.5 K/mm3 (0.1-0.6); Monocytes Percent Auto 6.4 % (2.6-8.5); Neutrophils Absolute Auto 4.2 K/mm3 (1.3-6.7); Platelet Count Result 391 k/mm3 (150-375); Red Blood Count 4.74 M/mm3 (4.2-5.4); Red Cell Distribution Width 14.2 % (11.5-14.5); White Blood Count 7.1 K/mm3 (4.5-10.0)
[2022-06-21] MEDS: SODIUM CHLORIDE 0.9% IV 1,000 ML 999 ML IV CONT (10:06)
[2022-06-21] MEDS: LORazepam INJ (*CRX) 2 MG/ML VIAL 1 MG IV PUSH (10:07)
[2022-06-21 10:12] LABS: Alanine Aminotransferase 33 U/L (6-35); Albumin Level 4.7 g/dL (3.5-5.1); Alkaline Phosphatase 66 U/L (38-126); Anion Gap 10 mmol/L (8-16); Aspartate Amino Transferase 29 U/L (14-36); Bilirubin,Total 0.7 mg/dL (0.2-1.3); Blood Urea Nitrogen 10 mg/dL (7-17); Calcium 9.1 mg/dL (8.4-10.2); Carbon Dioxide 24 mmol/L (22-30); Chloride 106 mmol/L (98-107); Estimated CRCL calculation 77 ml/min; Estimated Glomerular Filt Rate > 60; Glucose 112 mg/dL (65-110); Potassium 3.5 mmol/L (3.4-5.0); Sodium 140 mmol/L (137-145)
[2022-06-21 10:42] LABS: Thyroid Stimulating Hormone 0.821 uIU/mL (0.465-4.680)
[2022-06-21 11:45] VITALS: BP 105/67; PULSE 65; RESP 17; O2SAT 98
== END 2022-06-21 11:53 | disposition home or self-care (01) ==
PROVIDERS: Emergency Provider Emergency Medicine; PCP Family Medicine
DX: F41.9 Anxiety disorder, unspecified (principal)
CPT/HCPCS: 36415; 80053; 84443; 85025; 93005; 96361; 96374; 99284; J2060; J7030

== ENCOUNTER 2022-07-22 15:33 | Outpatient (CLI) | payer OTHER, SELFPAY ==
--- NOTE | ~2022-07-22 | US_ITS ---
EXAMINATION: US pelvic complete DATE: 07/22/2022 21:59 INDICATION: Irregular menses Comparison:Ultrasound dated 08/09/2018 TECHNIQUE: Multiple transabdominal sonographic images of the pelvis performed. FINDINGS: The uterus measures 11.1 x 6.3 x 4.8 cm. The endometrial complex measures 4 mm. The right ovary measures 3.1 x 1.7 x 1.3 cm and the left ovary measures 5.2 x 3.7 x 3.5 cm.. There is a left ovarian cyst measuring 3 cm. There are small follicles in each ovary. Normal doppler signal i n both ovaries. There is no free fluid in the pelvis. There are no abnormal masses seen on either side. IMPRESSION: 1. Left ovarian cyst measuring 3 cm. 2: Mildly enlarged uterus. Reviewed, dictated and finalized at location L.
== END 2022-07-22 15:34 | disposition home or self-care (01) ==
LOC: ANHIMG 18:17
PROVIDERS: PCP Family Medicine; Visit Provider Advanced Practice Midwife
DX: N93.8 Other specified abnormal uterine and vaginal bleeding (principal); N92.6 Irregular menstruation, unspecified; N83.202 Unspecified ovarian cyst, left side
CPT/HCPCS: 76856

== ENCOUNTER 2022-11-30 07:47 | Outpatient (CLI) | payer OTHER, SELFPAY ==
--- NOTE | ~2022-11-30 | MM_ITS ---
EXAMINATION: MM screening kelli BI w jimmy HISTORY: Screening mammogram TECHNIQUE: Craniocaudal and mediolateral oblique 3-D tomosynthesis images were obtained and synthetic 2-D images were generated. CAD analysis was submitted and interpreted. COMPARISON: 08/21/2021, 05/14/2020, 03/11/2019 bilateral screening mammogram examinations BREAST PARENCHYMAL COMPOSITION: There are scattered areas of fibroglandular density. FINDINGS: There is no evidence of suspicious mass, calcification, or architectural distortion to sugg est malignancy in either breast. There has been no suspicious interval change. IMPRESSION: 1. No mammographic evidence of malignancy. 2. Recommend routine screening mammography in one year. BI-RADS Category 1: Negative Reviewed, dictated and finalized at location A.
== END 2022-11-30 07:48 | disposition home or self-care (01) ==
LOC: ANHIMG 07:50
PROVIDERS: PCP Family Medicine; Visit Provider Obstetrics & Gynecology Gynecology
DX: Z12.31 Encounter for screening mammogram for malignant neoplasm of breast (principal)
CPT/HCPCS: 77063; 77067

== ENCOUNTER 2023-12-03 07:32 | Outpatient (CLI) | payer OTHER, SELFPAY ==
--- NOTE | ~2023-12-03 | MM_ITS ---
EXAMINATION: MM screening kelli BI w jimmy HISTORY: Screening TECHNIQUE: Craniocaudal and mediolateral oblique 3-D tomosynthesis images were obtained and synthetic 2-D images were generated. CAD analysis was submitted and interpreted. COMPARISON: Comparison to multiple prior studies sequentially, with oldest reviewed study dated 07/2017. BREAST PARENCHYMAL COMPOSITION: Not dense: There are scattered areas of fibroglandular density. FINDINGS: There is no evidence of suspicious mass, calcification, or architectural distortion to sugg est malignancy in either breast. There has been no suspicious interval change. IMPRESSION: 1. No mammographic evidence of malignancy. 2. Recommend routine screening mammography in one year. BI-RADS Category 1: Negative Reviewed, dictated and finalized at location B.
== END 2023-12-03 07:33 | disposition home or self-care (01) ==
LOC: ANHIMG 07:33
PROVIDERS: PCP Family Medicine; Visit Provider Obstetrics & Gynecology Gynecology
DX: Z12.31 Encounter for screening mammogram for malignant neoplasm of breast (principal)
CPT/HCPCS: 77063; 77067

== ENCOUNTER 2024-03-15 08:55 | Outpatient (CLI) | payer SELFPAY ==
--- NOTE | ~2024-03-15 | XR_ITS ---
Left Hand Technique: PA and lateral views were obtained. Clinical History: Raised antibody titer Findings: No acute fracture or dislocation is seen. Osseous alignment is anatomic. Joint spaces are p reserved. Soft tissues are unremarkable. Impression: Unremarkable right hand. Reviewed, dictated and finalized at location M. ING EXCEPTIONALITIES TEACHER Impression: Unremarkable right hand.
--- NOTE | ~2024-03-15 | XR_ITS ---
EXAMINATION: XR cervical spine 4-5V DATE: 03/15/2024 09:42 INDICATION: Joint pain. Recent antibody titer. TECHNIQUE: 4 views of cervical spine were obtained. COMPARISON: None. FINDINGS: There is mild kyphosis of cervical spine. Vertebral body heights are normal. There is mildl y decreased disc height at C4-C5 and C5-C6. The facet joints are unremarkable. There is mild central canal stenosis at C4-C5 and C5-C6. No prevertebral soft tissue swelling. IMPRESSION: 1. Mild cervical spondylosis. Reviewed, dictated and finalized at location A. DRY CLERK
--- NOTE | ~2024-03-15 | XR_ITS ---
Right Hand Technique: PA and lateral views were obtained. Clinical History: Raised antibody titer Findings: No acute fracture or dislocation is seen. Osseous alignment is anatomic. Joint spaces are p reserved. Soft tissues are unremarkable. Impression: Unremarkable right hand. Reviewed, dictated and finalized at location M. LE CUTTER Impression: Unremarkable right hand.
== END 2024-03-15 08:56 | disposition home or self-care (01) ==
PROVIDERS: PCP Internal Medicine; Visit Provider Internal Medicine
DX: M47.812 Spondylosis without myelopathy or radiculopathy, cervical region (principal); R76.0 Raised antibody titer
CPT/HCPCS: 72050; 73120

== ENCOUNTER 2025-01-16 14:20 | Outpatient (CLI) | payer OTHER, SELFPAY ==
--- NOTE | ~2025-01-16 | MM_ITS ---
EXAMINATION: MM screening kelli BI w jimmy HISTORY: Screening. TECHNIQUE: Craniocaudal and mediolateral oblique 3-D tomosynthesis images were obtained and synthetic 2-D images were generated. CAD analysis was submitted and interpreted. COMPARISON: 2023, 2022, and 2021. BREAST PARENCHYMAL COMPOSITION: Dense: The breasts are heterogeneously dense FINDINGS: No suspicious masses are seen. There are no suspicious calcifications. No unexplained architectural distortion is seen. There are no skin or nipple abnormalities identified. There is no adenopathy seen on the images submitted. IMPRESSION: No mammographic evidence to suggest malignancy is seen. The patient may return to screening mammography as per ACR guidelines. BI-RADS 1 - Negative. Reviewed, dictated and finalized at location C. ENT BILLER
== END 2025-01-16 14:21 | disposition home or self-care (01) ==
LOC: MICIMG 14:20
PROVIDERS: PCP Family Medicine; Visit Provider Obstetrics & Gynecology Gynecology
DX: Z12.31 Encounter for screening mammogram for malignant neoplasm of breast (principal)
CPT/HCPCS: 77063; 77067